=== PATIENT | male | born 1960 | race Hispanic/Latino ===

== ENCOUNTER 2022-09-05 11:33 | Emergency (ER) | payer BC ==
[2022-09-05 12:24] LABS: Absolute Lymphocytes (CBC) 0.6 K/uL (0.7-4.9); Hematocrit 49.6 % (39.6-49.0); Lymphocytes % 7.2 % (15.3-44.8); MCV 92.4 fL (80-100); MPV 7.9 fL (7.6-11.3); RBC Red Blood Cell Count 5.37 M/uL (4.33-5.43)
[2022-09-05 12:37] LABS: Bilirubin Total 0.9 mg/dL (0.2-1.0); Potassium 3.9 mmol/L (3.5-5.1); Protein, Total 7.9 g/dL (6.4-8.2)
--- NOTE | 2022-09-05 12:47 | RAD REPORT ---
EXAM DESCRIPTION: US - Abdomen Exam Limited - 09/05/2022 12:02 pm CLINICAL HISTORY: RUQ pain COMPARISON: No comparisons FINDINGS: The gallbladder demonstrates no gallstones. No pericholecystic fluid or gallbladder wall t hickening. The common bile duct is normal measuring 5 mm.. The liver demonstrates no findings of intrahepatic biliary dilatation. IMPRESSION: Unremarkable examination.
[2022-09-05 12:50] LABS: Urine Blood 2+ (Negative); Urine Glucose Negative (Negative); Urine Protein Negative (Negative)
[2022-09-05] MEDS ORDERED: MORPHINE 4 MG/ML SYR ONE (12:52)
[2022-09-05] MEDS ORDERED: NA CHLORIDE 0.9% 1,000 ML ONE (12:52)
[2022-09-05] MEDS ORDERED: ONDANSETRON 4 MG/2 ML VIAL ONE (12:52)
[2022-09-05 13:13] LABS: Urine Bacteria None Seen /HPF (<20); Urine Mucus Slight /HPF (None Seen)
--- NOTE | 2022-09-05 13:48 | RAD REPORT ---
EXAM DESCRIPTION: CT - Abdomen Pelvis W Contrast - 09/05/2022 1:10 pm CLINICAL HISTORY: Abdominal pain/right upper quadrant pain COMPARISON: none. TECHNIQUE: Computed axial tomography of the abdomen pelvis was obtained. 100 cc Isovue-300 was admin istered intravenously. Oral contrast was not requested which limits evaluation of bowel and appendix All CT scans are performed using dose optimization technique as appropriate and may include automated exposure control or mA/KV adjustment according to patient size. FINDINGS: Fatty liver Spleen, pancreas, adrenal and kidneys appear unremarkable. There is no evidence of diverticulitis. Small left inguinal hernia IMPRESSION: Fatty liver
--- NOTE | 2022-09-05 15:19 | EDPHYS ---
Physician Documentation [facility] Name: Venkat Huston Age: 61 yrs Sex: Male : 1960 Arrival Date: 09/05/2022 Time: 11:35 Bed 16 Private MD: Zay Asencio T ED Physician Giles Diaz HPI: 09/05 13:05 This 61 yrs old Male presents to ER via Ambulatory with complaints of jh7 Abdominal Pain. 13:05 The patient presents with abdominal pain in the right upper quadrant. Onset: The jh7 symptoms/episode began/occurred 1 month(s) ago. Associated signs and symptoms: Pertinent positives: nausea and vomiting, Pertinent negatives: diarrhea, fever, headache, shortness of breath, vomiting blood. Modifying factors: the symptoms are aggravated by food. Historical: - Allergies: 13:02 No Known Allergies; db - Home Meds: 13:02 None [Active]; db - PMHx: 13:02 None; db - PSHx: 13:02 None; db - Immunization history:: Adult Immunizations unknown, Client reports receiving the 2nd dose of the Covid vaccine. - Social history:: Smoking status: Patient denies any tobacco usage or history of. ROS: 13:05 Constitutional: Negative for fever, chills, and weight loss, Eyes: Negative for injury, jh7 pain, redness, and discharge, Neck: Negative for injury, pain, and swelling, Cardiovascular: Negative for chest pain, palpitations, and edema, Respiratory: Negative for shortness of breath, cough, wheezing, and pleuritic chest pain, Back: Negative for injury and pain, MS/Extremity: Negative for injury and deformity, Skin: Negative for injury, rash, and discoloration, Neuro: Negative for headache, weakness, numbness, tingling, and seizure. 13:05 Abdomen/GI: Positive for abdominal pain, nausea and vomiting, Negative for diarrhea, constipation, black/tarry stool, rectal pain, rectal bleeding. 13:05 All other systems are negative. Exam: 13:05 Constitutional: This is a well developed, well nourished patient who is awake, alert, jh7 and in no acute distress. Head/Face: Normocephalic, atraumatic. Eyes: Pupils equal round and reactive to light, extra-ocular motions intact. Lids and lashes normal. Conjunctiva and sclera are non-icteric and not injected. Cornea within normal limits. Periorbital areas with no swelling, redness, or edema. Cardiovascular: Regular rate and rhythm with a normal S1 and S2. No gallops, murmurs, or rubs. Normal PMI, no JVD. No pulse deficits. Respiratory: Lungs have equal breath sounds bilaterally, clear to auscultation and percussion. No rales, rhonchi or wheezes noted. No increased work of breathing, no retractions or nasal flaring. Back: No spinal tenderness. No costovertebral tenderness. Full range of motion. Skin: Warm, dry with normal turgor. Normal color with no rashes, no lesions, and no evidence of cellulitis. MS/ Extremity: Pulses equal, no cyanosis. Neurovascular intact. Full, normal range of motion. Neuro: Awake and alert, GCS 15, oriented to person, place, time, and situation. Motor strength 5/5 in all extremities. Sensory grossly intact. Normal gait. 13:05 Abdomen/GI: Inspection: abdomen appears normal, Bowel sounds: normal, Palpation: soft, mild abdominal tenderness, in the right upper quadrant. Vital Signs: 12:45 BP 130 / 94; Pulse 79; Resp 18; Temp 98.5(O); Pulse Ox 100% on R/A; Weight 88.45 kg; db Height 5 ft. 8 in. (172.72 cm); Pain 3/10; 13:27 Pulse 78; Resp 18; Pulse Ox 100% on R/A; ld1 13:28 BP 147 / 88; ld1 15:38 BP 134 / 83; Pulse 70; Resp 18; Pulse Ox 100% on R/A; db 12:45 Body Mass Index 29.65 (88.45 kg, 172.72 cm) db MDM: 11:36 Patient medically screened. [facility] 14:20 Differential diagnosis: Cholelithiasis, gastritis, gastroesophageal reflux disease, [facility] Pyelonephritis, Ureterolithiasis. Data reviewed: vital signs, nurses notes, lab test result(s), radiologic studies, CT scan, ultrasound. I considered the following discharge prescriptions or medication management in the emergency department Medications were administered in the Emergency Department. See MAR. Historians other than the Patient: Spouse/Significant Other: . Counseling: I had a detailed discussion with the patient and/or guardian regarding: the historical points, exam findings, and any diagnostic results supporting the discharge/admit diagnosis, the need for outpatient follow up, a patient coordinator front desk, to return to the emergency department if symptoms worsen or persist or if there are any questions or concerns that arise at home. Response to treatment: the patient's symptoms have markedly improved after treatment. 09/05 11:50 Order name: CBC with Diff; Complete Time: 12:50 [facility] 09/05 11:50 Order name: CMP; Complete Time: 12:50 [facility] 09/05 11:50 Order name: Lipase; Complete Time: 12:50 [facility] 09/05 11:50 Order name: Urine Microscopic Only; Complete Time: 13:27 [facility] 09/05 11:50 Order name: CT Abd/Pelvis - IV Contrast Only; Complete Time: 14:13 [facility] 09/05 12:50 Order name: Urine Dipstick-Ancillary; Complete Time: 13:11 [facility] 09/05 11:50 Order name: US Abdomen Limited; Complete Time: 12:50 [facility] 09/05 11:50 Order name: IV Saline Lock; Complete Time: 12:54 [facility] 09/05 11:50 Order name: Labs collected and sent; Complete Time: 12:54 [facility] 09/05 11:50 Order name: Urine Dipstick-Ancillary (obtain specimen); Complete Time: 12:59 [facility] 09/05 11:50 Order name: Urine Test (obtain specimen); Complete Time: 12:59 [facility] Administered Medications: 12:50 Drug: NS 0.9% 1000 ml Route: IV; Rate: 1 bolus; Site: left antecubital; db 15:41 Follow up: Response: No adverse reaction; IV Status: Completed infusion; IV Intake: db 1000ml 13:39 Not Given (Patient Refused): Zofran (Ondansetron) 4 mg IVP once; over 2 minutes ld1 13:39 Not Given (Patient Refused): morphine 2 mg IVP once over 4 mins ld1 Disposition: 09/06 07:00 Co-signature as Attending Physician, Giles Diaz MD I reviewed the patient's care rn provided by the Advanced Practice Provider and agree with the diagnosis and treatment plan. Disposition Summary: 09/05/22 15:18 Discharge Ordered Location: Home [facility] Problem: new jh7 Symptoms: have improved jh Condition: Stable [facility] Diagnosis - Upper abdominal pain, unspecified [facility] Followup: [facility] - With: Bennett Carter MD - When: 2 - 3 days - Reason: Recheck today's complaints Discharge Instructions: - Discharge Summary Sheet [facility] - Abdominal Pain, Adult [facility] - Pain Without a Known Cause [facility] Forms: - Medication Reconciliation Form [facility] - Thank You Letter [facility] Signatures: Dispatcher [employer] EDGiles Robles MD MD rn Hadash, Jennifer, FNP FNP [facility] Katie Leach RN RN db Audrey Downs RN ld1
--- NOTE | 2022-09-05 15:19 | ER ---
Nurse's Notes [facility] Name: Vnekat Huston Age: 61 yrs Sex: Male : 1960 Arrival Date: 09/05/2022 Time: 11:35 Bed 16 Private MD: Zay Asencio T Diagnosis: Upper abdominal pain, unspecified Presentation: 09/05 12:45 Chief complaint: Patient states: right upper abdominal pain x 4 weeks. worse yesterday db with nausea. Coronavirus screen: Vaccine status: Patient reports receiving the 2nd dose of the covid vaccine. Client denies travel out of the [place] in the last 14 days. At this time, the client does not indicate any symptoms associated with coronavirus-19. Ebola Screen: Patient negative for fever greater than or equal to 101.5 degrees Fahrenheit, and additional compatible Ebola Virus Disease symptoms Patient denies exposure to infectious person. Patient denies travel to an Ebola-affected area in the 21 days before illness onset. No symptoms or risks identified at this time. Initial Sepsis Screen: Does the patient meet any 2 criteria? No. Patient's initial sepsis screen is negative. Does the patient have a suspected source of infection? No. Patient's initial sepsis screen is negative. Risk Assessment: Do you want to hurt yourself or someone else? Patient reports no desire to harm self or others. Onset of symptoms was September 04, 2022. 12:45 Method Of Arrival: Ambulatory db 12:45 Acuity: MARK 3 db Triage Assessment: 13:02 General: Appears in no apparent distress. comfortable, Behavior is calm, cooperative. db Pain: Complains of pain in right upper quadrant. GI: Abdomen is flat, non-distended, Abd is soft Abdomen is tender to palpation in right upper quadrant Reports upper abdominal pain, nausea. Historical: - Allergies: 13:02 No Known Allergies; db - Home Meds: 13:02 None [Active]; db - PMHx: 13:02 None; db - PSHx: 13:02 None; db - Immunization history:: Adult Immunizations unknown, Client reports receiving the 2nd dose of the Covid vaccine. - Social history:: Smoking status: Patient denies any tobacco usage or history of. Screenin:03 [facility] ED Fall Risk Assessment (Adult) History of falling in the last 3 months, db including since admission No falls in past 3 months (0 pts) Confusion or Disorientation No (0 pts) Intoxicated or Sedated No (0 pts) Impaired Gait No (0 pts) Mobility Assist Device Used No (0 pt) Altered Elimination No (0 pt) Score/Fall Risk Level 0 - 2 = Low Risk Oriented to surroundings, Maintained a safe environment. Abuse screen: Denies threats or abuse. Denies injuries from another. Nutritional screening: No deficits noted. Tuberculosis screening: No symptoms or risk factors identified. Assessment: 12:59 Reassessment: Patient appears in no apparent distress at this time. Patient and/or db family updated on plan of care and expected duration. Pain level reassessed. Patient is alert, oriented x 3, equal unlabored respirations, skin warm/dry/pink. patient to CT. patient refused morphine and zofran at this time. General: Appears in no apparent distress. comfortable, Behavior is calm, cooperative. Pain: Complains of pain in abdomen, right upper abdomen. Neuro: Level of Consciousness is awake, alert, obeys commands, Oriented to person, place, time, situation. Cardiovascular: No deficits noted. GI: Abdomen is flat, non-distended, Bowel sounds present X 4 quads. Abd is soft Abdomen is tender to palpation in right upper quadrant. : No deficits noted. No signs and/or symptoms were reported regarding the genitourinary system. 14:00 Reassessment: Patient appears in no apparent distress at this time. Patient and/or db family updated on plan of care and expected duration. Pain level reassessed. Patient is alert, oriented x 3, equal unlabored respirations, skin warm/dry/pink. 15:41 Reassessment: Patient appears in no apparent distress at this time. Patient and/or db family updated on plan of care and expected duration. Pain level reassessed. Patient is alert, oriented x 3, equal unlabored respirations, skin warm/dry/pink. 15:41 Reassessment: Patient states feeling better. db Vital Signs: 12:45 BP 130 / 94; Pulse 79; Resp 18; Temp 98.5(O); Pulse Ox 100% on R/A; Weight 88.45 kg; db Height 5 ft. 8 in. (172.72 cm); Pain 3/10; 13:27 Pulse 78; Resp 18; Pulse Ox 100% on R/A; ld1 13:28 BP 147 / 88; ld1 15:38 BP 134 / 83; Pulse 70; Resp 18; Pulse Ox 100% on R/A; db 12:45 Body Mass Index 29.65 (88.45 kg, 172.72 cm) db ED Course: 11:35 Patient arrived in ED. as 11:36 Zay Asencio MD is Private Physician. as 11:36 [facility] jh7 11:36 Giles Diaz MD is Attending Physician. jh7 12:00 Initial lab(s) drawn, by wi, sent to lab. Inserted saline lock: 20 gauge in left em1 antecubital area, using aseptic technique. Blood collected. 12:01 US Abdomen Limited In Process Unspecified. EDMS 12:38 Katie Leach, RN is Primary Nurse. db 13:02 Triage completed. db 13:02 Arm band placed on Patient placed in an exam room. db 13:12 CT Abd/Pelvis - IV Contrast Only In Process Unspecified. EDMS 14:00 No provider procedures requiring assistance completed. db 14:00 Patient has correct armband on for positive identification. Bed in low position. Call db light in reach. Side rails up X 1. Pulse ox on. NIBP on. 15:18 Bennett Carter MD is Referral Physician. jh7 15:42 IV discontinued, intact, bleeding controlled, No redness/swelling at site. db Administered Medications: 12:50 Drug: NS 0.9% 1000 ml Route: IV; Rate: 1 bolus; Site: left antecubital; db 15:41 Follow up: Response: No adverse reaction; IV Status: Completed infusion; IV Intake: db 1000ml 13:39 Not Given (Patient Refused): Zofran (Ondansetron) 4 mg IVP once; over 2 minutes ld1 13:39 Not Given (Patient Refused): morphine 2 mg IVP once over 4 mins ld1 Medication: 13:03 VIS not applicable for this client. db Intake: 15:41 IV: 1000ml; Total: 1000ml. db Outcome: 15:18 Discharge ordered by . jh7 15:42 Discharged to home ambulatory. db 15:42 Condition: stable 15:42 Discharge instructions given to patient, Instructed on discharge instructions, follow up and referral plans. 15:43 Patient left the ED. db Signatures: Dispatcher [employer] Renee Torres Eric em1 Audrey Downs, RN RN ld1 Latricia Myers, PRINT BUYER PRINT BUYER 7 Katie Leach RN RN db Corrections: (The following items were deleted from the chart) 12:55 12:55 Initial lab(s) drawn, by me, sent to lab. em1 em1 :55 12:55 Inserted saline lock: 20 gauge in left antecubital area, using aseptic technique. em1 Blood collected. em1
[2022-09-05 15:53] VITALS: TEMP 98.5; O2SAT 100
[2022-09-05 15:56] VITALS: BP 134/83
== END 2022-09-05 15:43 | disposition home or self-care (01) ==
LOC: ER 11:33
DX: R10.11 Right upper quadrant pain (principal); R11.0 Nausea
CPT/HCPCS: 85025; 36415; 83690; 80053; 74177; 76705; Q9967; J7030; J2405; 81003; 81015

== ENCOUNTER 2024-07-24 06:16 | Day surgery (SDC) | payer BC ==
[2024-07-22 15:12] LABS: Absolute Eosinophils 0.4 K/uL (0-0.5); Absolute Lymphocytes (CBC) 1.6 K/uL (0.7-4.9); Absolute Monocytes 1.1 K/uL (0.1-1.3); Absolute Neutrophil 5.3 K/uL (1.8-8.0); Basophils % 0.5 % (0-1.3); Eosinophils % 4.2 % (0-4.4); Hematocrit 47.1 % (39.6-49.0); Hemoglobin 16.1 g/dL (13.6-17.9); MCH 31.6 pg (27.0-35.0); MCHC 34.2 g/dL (32.0-36.0); MCV 92.6 fL (80-100); MPV 8.2 fL (7.6-11.3); Monocytes % 12.6 % (3.3-12.3); Neutrophils % 63.7 % (41.7-73.7); Nucleated Red Blood Cells % 0.1 % (0-0); Platelets 248 thou/uL (152-406); RBC Red Blood Cell Count 5.09 M/uL (4.33-5.43); Red Cell Distribution Width 12.9 % (12.1-15.2)
[2024-07-22 15:28] LABS: ALT/SGPT 32 U/L (16-61); AST/SGOT 22 U/L (15-37); Albumin 3.9 g/dL (3.4-5.0); Albumin/Globulin Ratio 1.1 (1.1-1.8); Alkaline Phosphatase 107 U/L (45-117); Anion Gap 7.2 mEq/L (5.0-15.0); BUN Blood Urea Nitrogen 15 mg/dL (7-18); Bicarbonate 30 mEq/L (21-32); Bilirubin Total 0.6 mg/dL (0.2-1.0); Globulin 3.6 g/dL (2.3-3.5); Glomerular Filtration Rate 79 ml/min (=/>90); Glucose Level 104 mg/dL (74-106); Lipase 43 U/L (13-75); Potassium 4.2 mEq/L (3.5-5.1); Protein, Total 7.5 g/dL (6.4-8.2); Sodium Level 136 mEq/L (136-145)
[2024-07-22 15:29] LABS: Bilirubin Direct < 0.2 mg/dL (0-0.2); Bilirubin Indirect, Calculated 0.4 mg/dL (0.2-0.8)
--- NOTE | 2024-07-22 19:10 | RAD REPORT ---
EXAMINATION: TWO VIEW CHEST XR CLINICAL INDICATION: Male, 63 years old. [facility] Pre-op pending cholecystectomy. Hypertension TECHNIQUE: 2 view radiographs of the chest were performed. COMPARISON: No prior exam. FINDINGS: The lungs are well inflated and clear. No pneumothorax or sizable effusion. The heart is normal in si ze. Mediastinal contours are unremarkable. IMPRESSION: No acute or significant abnormalities.
[2024-07-24] MEDS: Ringers Lactate 1,000 ML IV ONE (06:45)
[2024-07-24] MEDS ORDERED: propofoL 200 MG/20 ML VIAL IV ONE (07:18)
[2024-07-24] MEDS ORDERED: MIDAZOLAM HCL 2 MG/2 ML INJ ONE (07:18)
[2024-07-24] MEDS ORDERED: ONDANSETRON 4 MG/2 ML VIAL ONE (07:18)
[2024-07-24] MEDS ORDERED: FENTANYL CITR 100 MCG/2 ML ONE (07:18)
[2024-07-24] MEDS ORDERED: ROCURONIUM 50 MG/5 ML VIAL IV ONE (07:19)
[2024-07-24] MEDS ORDERED: LIDOCAINE 2% MPF 5 ML VIAL ONE (07:19)
[2024-07-24] MEDS ORDERED: SUCCINYLCHOLINE 20 MG/ML (10 ML) IV ONE (07:24)
[2024-07-24] MEDS ORDERED: SUGAMMADEX SODIUM 200 MG/2 ML VIAL IV ONE (07:24)
[2024-07-24] MEDS: CEFOXITIN SODIUM 1 GM/VIAL ONE (07:46)
[2024-07-24] MEDS ORDERED: dexAMETHasone 10 MG/ML VIAL ONE (07:46)
[2024-07-24] MEDS ORDERED: GLYCOPYRROLATE 0.2 MG/ML SYR ONE (07:47)
[2024-07-24] MEDS ORDERED: KETOROLAC 30 MG/ML INJ ONE (07:47)
[2024-07-24] MEDS ORDERED: EPHEDRINE SULF 50 MG/ML VIAL ONE (08:01)
[2024-07-24] MEDS ORDERED: Mastisol Adhesive Liq ONE (08:15)
--- NOTE | 2024-07-24 08:18 | P.BOP ---
Preoperative diagnosis: biliary dyskinesia, RUQ abd pain Postoperative diagnosis: same plus intrabdominal adhesions Primary procedure: 1. Laparoscopic cholecystectomy Secondary procedure: 2. Laparoscopic lysis of adhesions Estimated blood loss: <10cc Specimen: gb Findings: same plu RUQ intrabdominal adhesions with omentum to abd wall peritoneum Anesthesia: General Complications: None Transferred to: Recovery Room Condition: Good
[2024-07-24] MEDS: HYDROMORPHONE HCL 1 MG/ML INJ ONE (08:42)
[2024-07-24 09:30] VITALS: BP 139/93; TEMP 97.6; O2SAT 99
[2024-07-24] MEDS ORDERED: CODEINE 30MG/APAP 300MG TAB ONE (09:39)
[2024-07-24] MEDS: CODEINE 30MG/APAP 300MG TAB PO ONE (09:44)
--- NOTE | 2024-07-25 11:36 | EKG ---
Test Date: 2024-07-22 Test Time: 15:36:47 Consulting Group Analyst: NORAH MEASUREMENT RESULTS: Intervals: Rate: 67 NH: 156 QRSD: 104 QT: 408 QTc: 431 Marion: P: 39 NH: 156 QRS: 71 T: 72 INTERPRETIVE STATEMENTS: Normal sinus rhythm Normal ECG No previous ECG available for comparison Electronically Signed On 07-25-24 11:34:31 BATTERY TECHNICIAN by Anirudh Sauceda
--- NOTE | 2024-07-30 00:10 | OP ---
Date of Procedure: 07/24/2024 Surgeon: Aleksander Lopez MD Preoperative Diagnoses: Biliary dyskinesia, right upper quadrant abdominal pain. Postoperative Diagnoses: Biliary dyskinesia, right upper quadrant abdominal pain, extensive intraabd ominal adhesions. Procedures: Laparoscopic cholecystectomy, laparoscopic lysis of adhesions. Estimated Blood Loss: Less than 10 cc. Specimen: Gallbladder. Findings: Multiple right upper quadrant abdominal adhesions, omentum stuck to the anterior abdominal wall and to the gallbladder itself, does have to be removed in order for us to continue to do the bowen rgery. Anesthesia: General plus local. Complications: None. Indications: This is a case of a male who comes to us with above diagnoses. Fully explained the gt efits, alternatives, and risks of laparoscopic, possible open cholecystectomy, which include, but not limited to, infection, bleeding, damage to adjacent structures, anesthesia complication, choledochol ithiasis, bile leak, pancreatitis, OK, and even . He also understands this may not relieve symp toms. He might need more than one surgical intervention. He understood, signed a consent. Procedure In Detail: The patient was brought to the operating room, placed in supine position. Anes thesia was done without complication. Abdominal area was prepped and draped in the usual sterile fas hion. Marcaine 0.5% was injected for local anesthetic, followed by sharp incision of the skin in the periumbilical region. Incision was carried down to fascia, which was opened under direct vision. P eritoneum was encountered opened under direct vision. Vicryl #1 placed inside the fascia. Andre tr ocar was carefully introduced. No bleeding was obtained. I placed 3 more trocars, 5 mm each one of them, one in epigastric area and two in the right upper quadrant under direct visualization. This al lowed me to take a look at the area. There were too many adhesions of omentum to the anterior abdomi nal wall, probably from a previous inflammation in the gallbladder. I did not see any extraluminal m asses on the colon in that region. Once again, he will have to have a proper workup for that, but us ing the LigaSure, we proceeded to carefully remove those adhesions down. Those were attached to the gallbladder, liver, even anterior abdominal wall. Once we had the adhesions down that took probably half the time of the case, we proceeded then to identify the area of the gallbladder. We put a grasp er in the fundus of the gallbladder and another grasper in infundibulum, retracting the gallbladder i n the inferolateral fashion, exposing the triangle of Calot, obtaining critical view. Cystic duct an d cystic artery were clearly isolated, freed circumferentially, and a connection between those and th e gallbladder were clearly identified. I proceeded to ligate those by using at least 3 clips proxima l, 1 clip distal, ligation in the middle. Same was done with the cystic artery. No bile leak. No b leeding. The gallbladder was removed from the liver using Bovie cauterizer and removed from abdomina l cavity using Endo Catch through the umbilical incision. The area was inspected once again, no bile leak. No bleeding. At that moment, I proceeded to remove the trocars under direct vision. Deflate d pneumoperitoneum. Closed the fascia with #1 Vicryl, irrigated subcutaneous tissue and closed that with 3-0 chromic, and then the skin was approximated. Sponge count and instrument count were correct . The patient tolerated procedure well. The patient was sent to recovery in stable condition. HORTENSIA/KAREN Voice ID: [id number] Report ID: [id number]
--- NOTE | 2024-07-30 00:13 | DS ---
Date of Discharge: 07/24/2024 Diagnoses: Biliary dyskinesia, right upper quadrant abdominal pain, intraabdominal adhesions. Procedures: Laparoscopic cholecystectomy, laparoscopic lysis of adhesions. Disposition: Home. Activity: As tolerated. No heavy lifting. Discharge Instructions: Follow up in my office in 1 week. Call for appointment at [phone]. Keep a madelyn dry for 48 hours, then may shower. For medications, see orders. HORTENSIA/KAREN Voice ID: [id number] Report ID: [id number]
== END 2024-07-24 10:10 | disposition home or self-care (01) ==
LOC: OR 06:16
PROVIDERS: ATTEND Surgery
PROC: 0DNW4ZZ Release Peritoneum, Percutaneous Endoscopic Approach (ICD-10-PCS; 2024-07-24)
PROC: 0FT44ZZ Resection of Gallbladder, Percutaneous Endoscopic Approach (ICD-10-PCS; principal; 2024-07-24 07:35)
DX: K81.1 Chronic cholecystitis (principal); K82.8 Other specified diseases of gallbladder; R10.11 Right upper quadrant pain; K66.0 Peritoneal adhesions (postprocedural) (postinfection)
CPT/HCPCS: 47600; 93005; 85025; 80048; 36415; 80076; 88304; 83690; 71046; 49329; J2704; J2003; J2250; J3010; J1100; J1171; J0694; J2405; J7120